=== PATIENT | female | born 1960 | race Caucasian/White ===

== ENCOUNTER → 2016-11-11 | Outpatient (CLI) | payer OTHER ==
[~2016-11-11] MED LIST: ALBUTEROL17 GM INH; ASPIRIN PO; ASPIRIN81 MG PO; BENICAR HCT 40/1 TAB PO; COREG PO; FLONASE16 GM; FORADIL12 MCG NEB; HCTZ PO; KCL PO; KOMBIGLYZE XR1 EAC2 PO; LASIX PO; PHENTERMINE HCL15 MG PO; PRAVACHOL20 MG PO; PROTONIX PO; PROVENTIL INH; SINGULAIR PO; SPIRIVA18 MCG INH; TOPIRAMATE100 MG PO; XANAX0.5 M1 PO
[2016-11-11 10:20] LABS: BILIRUBIN,TOTAL 0.4 mg/dL (0.2-2.0); CALCIUM SERUM 9.2 mg/dL (8.4-10.2); GLOM FILT RATE Estimated 62.5 mL/min (>60); POTASSIUM 4.2 mmol/L (3.5-5.1)
== END | disposition home or self-care (01) ==
LOC: CLAB 08:54
PROVIDERS: Family Medicine
DX: E11.9 Type 2 diabetes mellitus without complications (principal)
CPT/HCPCS: 36415; 80053; 80061; 83036

== ENCOUNTER → 2016-11-16 | Outpatient (CLI) | payer OTHER ==
--- NOTE | ~2016-11-16 | EKG ---
PATIENT: JULIA MAR UNIT #: [id number] Ventricular Rate: 88 BPM Atrial Rate: 88 BPM P-R Interval: 146 ms QRS Duration: 86 ms Q-T Interval: 358 ms QTC Calculation(Bezet): 433 ms P [place]: 43 degrees Calculated R [place]: 33 degrees Calculated T [place]: 53 degrees Diagnosis Line: Normal sinus rhythm Diagnosis Line: Normal ECG Diagnosis Line: When compared with ECG of 04-AUG-2014 05:31, Diagnosis Line: No significant change was found Diagnosis Line: Confirmed by RONIT IRIZARRY MD ([id number]) on Diagnosis Line: 11/17/2016 9:11:37 AM INTERPRETING MD: JUAN C WALL
[2016-11-16 13:51] LABS: HEMATOCRIT 32.7 % (35.0-45.0); MEAN CELL VOLUME 86.1 FL (83-96); MEAN CORPUSCULAR HEMOGLOBIN 29.1 PG (28-34); MEAN CORPUSCULAR HGB CONC 33.8 g/dL (30-36); MEAN PLATELET VOLUME 7.7 FL (6.5-11.5); RED BLOOD COUNT 3.79 X10e (3.90-5.30); RED CELL DISTRIBUTION WIDTH 15.9 % (11.0-15.5); WHITE BLOOD COUNT 5.5 X10e3 (4.0-10.5)
[2016-11-16 14:13] LABS: BUN/CREATININE RATIO 15.83; CALCIUM SERUM 9.6 mg/dL (8.4-10.2); CREATININE SERUM 1.2 mg/dL (0.6-1.4); GLOM FILT RATE Estimated 50.1 mL/min (>60); POTASSIUM 4.3 mmol/L (3.5-5.1)
== END | disposition home or self-care (01) ==
LOC: CLAB 13:14
PROVIDERS: Specialist
DX: J32.9 Chronic sinusitis, unspecified (principal)
CPT/HCPCS: 36415; 80048; 85027; 93005